=== PATIENT | male | born 1980 | race Caucasian/White ===

== ENCOUNTER 2017-03-09 10:57 | Emergency (ER) | payer SELFPAY ==
[~2017-03-09] VITALS: Ht 190.5 cm; Wt 100.0 kg
[~2017-03-09 10:57] MED LIST: CHLO25CA2 PO; LISI10TA3 PO; ZOFR4TAB3 SL
[2017-03-09 10:58] VITALS: BP 133/83; PULSE 79; RESP 13; TEMP 97.9; O2SAT 96
--- NOTE | 2017-03-09 11:05 | PD ---
Physical Exam Time Seen by Provider: 11:03 Narrative Pt presents with 2 day swelling of LLE edema. No recent injury. Pain on anterior hough with numbness in Big toe and dorsal foot. No hx of blood clot. No recent travel. No fever or chills. VSS. Data Data Last Documented VS Vital Signs Date Time Temp Pulse Resp B/P (MAP) Pulse Ox O2 Delivery O2 Flow Rate FiO2 03/09/17 12:01 71 17 138/91 (107) 95 Room Air 03/09/17 10:58 97.9 Orders Orders Us Leg Venous Doppler (03/09/17 ) Complete Blood Count With Diff (03/09/17 12:36) Basic Metabolic Panel (Bmp) (03/09/17 12:36) C-Reactive Protein (Crp) (03/09/17 12:36) Iv Access Insert/Monitor (03/09/17 12:36) Ketorolac Inj (Toradol Inj) (03/09/17 12:45) Foot, Complete ([id number]) (03/09/17 12:38) Tibia/Fibula (Ap/Lat) (03/09/17 12:38) Labs Laboratory Tests Test 03/09/17 12:35 MDM Medical Record Reviewed: Yes Supervised Visit with EMILI: No Scripts No Active Prescriptions or Reported Meds Condition: Stable Zeinab Ramsey Mar 09, 2017 11:05
[2017-03-09 12:01] VITALS: BP 138/91; PULSE 71; RESP 17; O2SAT 95
--- NOTE | 2017-03-09 12:11 | PD ---
HPI Chief Complaint: Edema Time Seen by Provider: 12:02 Travel History International Travel<30 days: No Contact w/Intl Traveler<30days: No Traveled to known affect area: No History of Present Illness HPI 36-year-old male complains of pain and swelling left low leg, left ankle and left foot. Patient has history of fracture of left low leg status post surgery in 2013. Patient has history of chronic pain to her left lower extremity. Patient was on morphine and recently methadone for that. Patient started having increasing pain and swelling left lower extremity left ankle left foot 2 days ago. Patient denies any recent injury. Patient denies any headache. Patient denies any chest pain or shortness of breath. Patient denies abdominal pain. Patient denies any fever chills. Patient denies history of DVT or PE. PFSH Past Medical History Anxiety: Yes Cardiovascular Problems: Yes ([place], [place]) Diminished Hearing: No Social History Alcohol Use: Yes (weekends) Tobacco Use: Yes Substance Use: Yes (METHADONE) Allergies-Medications (Allergen,Severity, Reaction): Coded Allergies: No Known Allergies (Unverified , 08/21/16) Reported Meds & Prescriptions Reported Meds & Active Scripts Active Bactrim DS (Sulfamethoxazole-Trimethoprim) 800-160 Mg Tab 1 Tab PO BID Robaxin (Methocarbamol) 750 Mg Tab 750 Mg PO QID Zantac (Ranitidine HCl) 300 Mg Tab 300 Mg PO DAILY Prednisone 20 Mg Tab 20 Mg PO DAILY Mobic (Meloxicam) 15 Mg Tab 15 Mg PO DAILY Review of Systems General / Constitutional: No: Fever Eyes: No: Visual changes HENT: No: Headaches Cardiovascular: No: Chest Pain or Discomfort Respiratory: No: Shortness of Breath Gastrointestinal: No: Abdominal Pain Genitourinary: No: Dysuria Musculoskeletal: Positive: Edema, Pain Skin: No Rash Neurologic: No: Weakness Psychiatric: No: Depression Endocrine: No: Polydipsia Hematologic/Lymphatic: No: Easy Bruising Physical Exam Narrative GENERAL: Well-nourished, well-developed patient. SKIN: Focused skin assessment warm/dry. HEAD: Normocephalic. EYES: No scleral icterus. No injection or drainage. NECK: Supple, trachea midline. No JVD or lymphadenopathy. CARDIOVASCULAR: Regular rate and rhythm without murmurs, gallops, or rubs. RESPIRATORY: Breath sounds equal bilaterally. No accessory muscle use. GASTROINTESTINAL: Abdomen soft, non-tender, nondistended. MUSCULOSKELETAL: Patient has moderate diffuse tenderness and swelling over the left foot left ankle and distal left lower extremity. Mild tenderness on palpation left calf area. Mild redness noted. BACK: Nontender without obvious deformity. No CVA tenderness. Data Data Last Documented VS Vital Signs Date Time Temp Pulse Resp B/P (MAP) Pulse Ox O2 Delivery O2 Flow Rate FiO2 03/09/17 12:01 71 17 138/91 (107) 95 Room Air 03/09/17 10:58 97.9 Orders Orders Us Leg Venous Doppler (03/09/17 ) Complete Blood Count With Diff (03/09/17 12:36) Basic Metabolic Panel (Bmp) (03/09/17 12:36) C-Reactive Protein (Crp) (03/09/17 12:36) Iv Access Insert/Monitor (03/09/17 12:36) Ketorolac Inj (Toradol Inj) (03/09/17 12:45) Foot, Complete ([id number]) (03/09/17 12:38) Tibia/Fibula (Ap/Lat) (03/09/17 12:38) Labs Laboratory Tests Test 03/09/17 12:35 White Blood Count 8.6 TH/MM3 Red Blood Count 4.39 MIL/MM3 Hemoglobin 13.9 GM/DL Hematocrit 40.5 % Mean Corpuscular Volume 92.4 FL Mean Corpuscular Hemoglobin 31.6 PG Mean Corpuscular Hemoglobin Concent 34.2 % Red Cell Distribution Width 12.9 % Platelet Count 254 TH/MM3 Mean Platelet Volume 9.0 FL Neutrophils (%) (Auto) 65.4 % Lymphocytes (%) (Auto) 21.9 % Monocytes (%) (Auto) 7.7 % Eosinophils (%) (Auto) 4.1 % Basophils (%) (Auto) 0.9 % Neutrophils # (Auto) 5.6 TH/MM3 Lymphocytes # (Auto) 1.9 TH/MM3 Monocytes # (Auto) 0.7 TH/MM3 Eosinophils # (Auto) 0.4 TH/MM3 Basophils # (Auto) 0.1 TH/MM3 CBC Comment DIFF FINAL Differential Comment Blood Urea Nitrogen 8 MG/DL Creatinine 1.04 MG/DL Random Glucose 98 MG/DL Calcium Level 8.9 MG/DL Sodium Level 137 MEQ/L Potassium Level 3.6 MEQ/L Chloride Level 100 MEQ/L Carbon Dioxide Level 28.6 MEQ/L Anion Gap 8 MEQ/L Estimat Glomerular Filtration Rate 80 ML/MIN C-Reactive Protein 2.00 MG/DL MDM Medical Decision Making Medical Screen Exam Complete: Yes Emergency Medical Condition: Yes Interpretation(s) 1346 PM. X-ray of the left tib-fib, left foot shows chronic changes. Healed fracture. CBC within normal limit. WBC 8.6. Normal differential. BMP within normal limit. C-reactive protein 2.0. Differential Diagnosis Differential diagnosis including dependent edema, cellulitis, DVT, fracture, gouty arthritis Narrative Course 36-year-old male with pain and swelling left lower extremity left ankle left foot. History of fracture in the past. Patient has normal white count and afebrile. Not much in redness and heat on examination of the left foot and ankle and left leg. Low probability of cellulitis. Most likely arthralgia and dependent edema. Toradol 30 mg IV. Diagnosis Primary Impression: Edema of left foot Additional Impression: Edema of left ankle Patient Instructions: General Instructions Additional Instructions: Take medications as directed. Keep left leg elevated. Follow-up local physician. Return if persistent problem or worse. May need to repeat ultrasound left lower extremity in 1 week if persistent swelling to rule out DVT. Med/Other Pt SpecificInfo: Prescription(s) given Scripts Sulfamethoxazole-Trimethoprim (Bactrim DS) 800-160 Mg Tab 1 TAB PO BID for Infection, #20 TAB 0 Refills Prov: Ye Correa MD 03/09/17 Methocarbamol (Robaxin) 750 Mg Tab 750 MG PO QID for Muscle Spasm, #40 TAB 0 Refills Prov: Ye Correa MD 03/09/17 Ranitidine (Zantac) 300 Mg Tab 300 MG PO DAILY, #14 TAB 0 Refills Prov: Ye Correa MD 03/09/17 Prednisone (Prednisone) 20 Mg Tab 20 MG PO DAILY, #7 TAB 0 Refills Prov: Ye Correa MD 03/09/17 Meloxicam (Mobic) 15 Mg Tab 15 MG PO DAILY for Pain, #20 TAB 0 Refills Prov: Ye Correa MD 03/09/17 Disposition: 01 DISCHARGE HOME Condition: Stable Ye Correa MD Mar 09, 2017 12:10
[2017-03-09] MEDS ORDERED: KETOROLAC TROMETHAMINE 30 MG/ML (IVP) VIAL IV PUSH ONE (12:45)
--- NOTE | 2017-03-09 12:46 | RADRPT ---
EXAM DATE/TIME: 03/09/2017 11:23 [facility] COMPARISON: No previous studies available for comparison. INDICATIONS : Left leg redness. MEDICAL HISTORY : Hypertension. Myocardial infarction. Methadone abuse. Tobacco use. SURGICAL HISTORY : None. ENCOUNTER: Initial ACUITY: 2 day PAIN SCORE: 5/10 LOCATION: Left leg. TECHNIQUE: Venous ultrasound of the leg was performed from the inguinal ligament to the proximal calf. Real-corbin e, color Doppler and spectral tracing, compression and augmentation techniques were used. FINDINGS: There is normal compressibility of the deep venous system from the inguinal region to the proximal ca lf. No echogenic clot is seen in the lumen of the common femoral, femoral, popliteal, and posterior tibial veins. There is a normal response of the venous system to proximal and distal augmentation an d respiration. CONCLUSION: 1. Negative for deep venous stenosis left lower extremity. Mildly prominent left inguinal lymph node. Herson Johnson MD on March 09, 2017 at 12:42 Board Certified Radiologist. This report was verified electronically.
[2017-03-09 13:03] LABS: AUTOMATED NEUTROPHIL # 5.6 TH/MM3 (1.8-7.7); BASOPHIL # 0.1 TH/MM3 (0-0.2); BASOPHIL % 0.9 % (0.0-2.0); EOSINOPHIL # 0.4 TH/MM3 (0-0.4); EOSINOPHIL % 4.1 % (0.0-4.0); HEMATOCRIT 40.5 % (39.0-51.0); HEMO FLAGS DIFF FINAL; LYMPH % 21.9 % (9.0-44.0); LYMPHOCYTE # 1.9 TH/MM3 (1.0-4.8); MEAN CELL VOLUME 92.4 FL (80.0-100.0); MEAN CORPUSCULAR HEMOGLOBIN 31.6 PG (27.0-34.0); MEAN CORPUSCULAR HGB CONC 34.2 % (32.0-36.0); MONO % 7.7 % (0.0-8.0); NEUT % 65.4 % (16.0-70.0); PLATELET COUNT 254 TH/MM3 (150-450); RED BLOOD COUNT 4.39 MIL/MM3 (4.50-5.90); RED CELL DISTRIBUTION WIDTH 12.9 % (11.6-17.2); WHITE BLOOD COUNT 8.6 TH/MM3 (4.0-11.0)
[2017-03-09 13:23] LABS: BICARBONATE 28.6 MEQ/L (21.0-32.0); POTASSIUM 3.6 MEQ/L (3.5-5.1)
--- NOTE | 2017-03-09 13:28 | RADRPT ---
EXAM DATE/TIME: 03/09/2017 13:12 [facility] COMPARISON: No previous studies available for comparison. INDICATIONS : Swelling, no known injury MEDICAL HISTORY : None. SURGICAL HISTORY : broken tib/fib with surgery 2012 ENCOUNTER: Initial ACUITY: 2 days PAIN SCORE: 5/10 LOCATION: Left foot FINDINGS: Three view examination of the left foot demonstrates no soft tissue swelling, dislocation, or fractur e. The tarsal bones appear intact. The interphalangeal and metatarsophalangeal joints are intact. The calcaneus is intact. Bony mineralization is normal. No subcutaneous emphysema or radiopaque for eign body. CONCLUSION: 1. Calcifications seen or radiopaque foreign body. 2. No acute fracture or dislocation. Lonny Gore MD on March 09, 2017 at 13:26 Board Certified Radiologist. This report was verified electronically.
--- NOTE | 2017-03-09 13:33 | RADRPT ---
EXAM DATE/TIME: 03/09/2017 13:08 [facility] COMPARISON: No previous studies available for comparison. INDICATIONS : Left tib/fib swelling, no recent trauma. MEDICAL HISTORY : None. SURGICAL HISTORY : left tib/fib injury with surgery 2012 ENCOUNTER: Initial ACUITY: 2 days PAIN SCORE: 5/10 LOCATION: Left tib/fib FINDINGS: Bony remodeling and mature periosteal reaction involving the mid to distal fibula and tibial diaphysi s. Defects consistent with prior intramedullary maura and screws. Ill-defined lucency in the region of the distal tibial remodeling likely related to prior hardware. Otherwise, no evidence for bony erosio n or acute fracture. No significant soft tissue emphysema or radiopaque foreign bodies. CONCLUSION: 1. Healed distal fibula and tibial fractures with evidence for prior fixation hardware, as above. 2. No acute fracture, subcutaneous emphysema, or radiopaque foreign bodies. Lnony Gore MD on March 09, 2017 at 13:29 Board Certified Radiologist. This report was verified electronically.
[2017-03-09] MEDS ORDERED: ZANT300T PO (13:56)
[2017-03-09] MEDS ORDERED: MOBI15TA PO (13:56)
[2017-03-09] MEDS ORDERED: BACT800T5 PO (13:56)
[2017-03-09] MEDS ORDERED: PRED20 PO (13:56)
[2017-03-09] MEDS ORDERED: ROBA750T PO (13:56)
== END 2017-03-09 15:00 | disposition home or self-care (01) ==
LOC: NEPD 10:57
DX: R60.9 Edema, unspecified (principal); G89.29 Other chronic pain; M79.605 Pain in left leg; F41.9 Anxiety disorder, unspecified; I10 Essential (primary) hypertension; Z72.0 Tobacco use
CPT/HCPCS: 73590; 73630; 80048; 85025; 86140; 93971; 96374; 99285; J1885

== ENCOUNTER 2017-03-17 16:46 | Emergency (ER) | payer SELFPAY ==
[~2017-03-17] VITALS: Ht 190.5 cm; Wt 100.0 kg
[~2017-03-17 16:46] MED LIST changes: +BACT800T5 PO; -CHLO25CA2 PO; -LISI10TA3 PO; +MOBI15TA PO; +PRED20 PO; +ROBA750T PO; +ZANT300T PO; -ZOFR4TAB3 SL
[2017-03-17 16:51] VITALS: BP 138/95; PULSE 92; RESP 18; TEMP 98.8; O2SAT 95
--- NOTE | 2017-03-17 18:48 | PD ---
HPI Chief Complaint: Medical Clearance Time Seen by Provider: 18:45 Travel History International Travel<30 days: No Contact w/Intl Traveler<30days: No Traveled to known affect area: No History of Present Illness HPI 36-year-old male presents to the emergency department requesting work release to return back to work for full duty. He said he was seen here about a week ago with left lower leg edema and was given light duty. He is ready to return back to full duty because he has no swelling of the leg anymore. He denies paresthesias, loss of sensation, decreased range of motion, decreased strength to the affected extremity. Denies fever, vomiting. Has no medical complaints at this time. No known allergies. Symptoms are mild in severity. No other modifying factors or associated signs and symptoms. History Social History Alcohol Use: Yes (weekends) Tobacco Use: Yes Allergies-Medications (Allergen,Severity, Reaction): Coded Allergies: No Known Allergies (Unverified , 03/17/17) Reported Meds & Prescriptions Reported Meds & Active Scripts Active Bactrim DS (Sulfamethoxazole-Trimethoprim) 800-160 Mg Tab 1 Tab PO BID Robaxin (Methocarbamol) 750 Mg Tab 750 Mg PO QID Zantac (Ranitidine HCl) 300 Mg Tab 300 Mg PO DAILY Prednisone 20 Mg Tab 20 Mg PO DAILY Mobic (Meloxicam) 15 Mg Tab 15 Mg PO DAILY Review of Systems Except as stated in HPI: all other systems reviewed are Neg Physical Exam Narrative GENERAL: Well-nourished, well-developed male patient, in no acute distress SKIN: Warm and dry. HEAD: Atraumatic. Normocephalic. EYES: Pupils equal and round. No scleral icterus. No injection or drainage. ENT: Mucosa pink and moist. Airway patent. NECK: Trachea midline. CARDIOVASCULAR: Regular rate. RESPIRATORY: No accessory muscle use. GASTROINTESTINAL: Rounded. MUSCULOSKELETAL: Left lower extremity supple and non-tense a 2+ pedal pulse and sensory intact without erythema or edema. No obvious deformities. No clubbing. No cyanosis. No edema. NEUROLOGICAL: Awake and alert. Oriented 3. No obvious cranial nerve deficits. Motor grossly within normal limits. Normal speech. PSYCHIATRIC: Appropriate mood and affect; insight and judgment normal. Data Data Last Documented VS Vital Signs Date Time Temp Pulse Resp B/P (MAP) Pulse Ox O2 Delivery O2 Flow Rate FiO2 03/17/17 16:51 98.8 92 18 138/95 (109) 95 Room Air MDM Medical Screen Exam Complete: Yes Emergency Medical Condition: No Differential Diagnosis Medical clearance Narrative Course 36-year-old male presents requesting medical release to return back to work. Vital signs are stable and the patient is stable for outpatient follow-up and treatment. The patient has no urgent or emergent medical complaints. There is no emergent or urgent medical need at this time. I instructed the patient to follow up with their primary care provider. A medical screening exam was performed: At the time of evaluation the presenting medical condition was determined not to be of an emergent nature. The patient was given the option of receiving additional care, but declined. Patient was given options for additional community resources from which to obtain care. The Patient Has Been advised to seek medical attention for their presenting complaint. The patient has been advised to return to the ER at any time if an emergent condition develops. Primary Impression: Encounter for medical screening examination Patient Instructions: General Instructions Departure Forms: Work Release, Enter return to work date: Mar 17, 2017 Special Instructions: RETURN TO FULL DUTY Tests/Procedures Condition: Stable Beba Mayfield Mar 17, 2017 18:48
== END 2017-03-17 18:51 | disposition left against medical advice (07) ==
LOC: NEPK 16:46
DX: Z02.79 Encounter for issue of other medical certificate (principal)
CPT/HCPCS: 99281